=== PATIENT | male | born 1935 | race African-American/Black ===

== ENCOUNTER 2018-08-08 12:50 | Inpatient (IN) ==
[2018-08-08] MEDS ORDERED: LASIX IVP ONE ×2 (13:05→13:07)
[2018-08-08 13:20] LABS: BASOPHILS % (AUTO) 0.4 % (0.2-1.0); EOSINOPHILS # (AUTO) 0.1 x10^3/uL (0.0-0.2); HEMATOCRIT 32.9 % (42.0-54.0); HEMOGLOBIN 10.4 g/dL (13.5-18.0); LYMPHOCYTES # (AUTO) 0.4 X10^3/uL (1.3-2.9); LYMPHOCYTES % (AUTO) 4.8 % (21.0-51.0); MEAN CORPUSCULAR HEMOGLOBIN 28.3 pg (27.0-34.0); MEAN CORPUSCULAR HGB CONC 31.7 g/dL (33.0-35.0); MEAN CORPUSCULAR VOLUME 89.5 fL (80.0-100.0); MEAN PLATELET VOLUME 7.1 fL (7.4-11.0); MONOCYTES # (AUTO) 0.3 x10^3/uL (0.3-0.8); MONOCYTES % (AUTO) 3.3 % (0.0-13.0); NEUTROPHILS # (AUTO) 8.5 x10^3/uL (2.2-4.8); NEUTROPHILS % (AUTO) 90.5 % (42.0-75.0); PLATELET COUNT 369 X10^3/uL (150.0-450.0); RED BLOOD COUNT 3.67 X10^6/uL (4.7-6.0); RED CELL DISTRIBUTION WIDTH 14.5 % (11.6-16.5); WHITE BLOOD COUNT 9.4 X10^3/uL (3.6-10.0)
[2018-08-08] MEDS ORDERED: MORPHINE SULFATE INJ 4 MG IVP ONE (13:24)
[2018-08-08] MEDS ORDERED: MORPHINE SULFATE INJ 4 MG ONE (13:26)
[2018-08-08 13:29] LABS: LACTIC ACID 0.7 mmol/L (0.4-2.0)
[2018-08-08 13:30] LABS: BILIRUBIN,URINE NEGATIVE (NEGATIVE); BLOOD/HEMOGLOBIN,URINE 1+ (NEGATIVE); GLUCOSE, URINE NEGATIVE (NEGATIVE); KETONES,URINE 1+ (NEGATIVE); LEUKOCYTE ESTERASE ,URINE NEGATIVE (NEGATIVE); NITRITES,URINE NEGATIVE (NEGATIVE); PROTEIN,URINE 3+ (NEGATIVE); UROBILINOGEN,URINE 1+ (NORMAL)
[2018-08-08 13:34] LABS: BAND NEUTROPHILS % 2 % (0-10); PLATELET MORPHOLOGY COMMENT NORMAL (NORMAL)
[2018-08-08 13:35] LABS: ALBUMIN 2.8 g/dL (3.4-5.0); CALCIUM 8.6 mg/dL (8.5-10.1); CARBON DIOXIDE 38.6 mmol/L (21-32); CKMB % 1.5 % (<4); COR CA(FOR HYPOALB) 9.6 mg/dL (8.5-10.1); CREATINE KINASE MB 2.5 ng/mL (0-4.0); CREATININE 1.6 mg/dL (0.70-1.30); TOTAL PROTEIN 7.4 g/dL (6.4-8.2); TROPONIN I 1.46 ng/mL (0-1.5)
[2018-08-08 13:41] LABS: APPEARANCE,URINE CLEAR (CLEAR); COLOR,URINE YELLOW (YELLOW)
[2018-08-08 13:42] LABS: RBC,URINE 0-2 /HPF (NONE SEEN)
[2018-08-08 13:43] LABS: BACTERIA,URINE TRACE /HPF (NEGATIVE); SQUAMOUS EPITHELIAL CELL,UR MODERATE /HPF (NEGATIVE)
[2018-08-08 13:55] LABS: ABG BASE EXCESS 10.2 mmol/L (-2.0-2.0)
[2018-08-08 13:56] LABS: ABG HCO3 40.4 mmol/L (22-26)
[2018-08-08 13:57] LABS: ABG ALLEN TEST POS; FRACTIONATED INSPIRED OXYGEN 32
--- NOTE | 2018-08-08 14:02 | RAD ---
HISTORY: Shortness of breath. Study: AP portable chest Comparison: 07/21/2018 Findings: Low volume inspiration noted. Minimal pulmonary vascular congestion and bibasilar atelectatic change /infiltrate is noted, possibly due to low volume inspiration. Obscuration of the left hemidiaphragm is noted suggestive of atelectatic change/infiltrate. Moderate cardiomegaly is noted. No acute bony abnormalities are identified. IMPRESSION: 1. Moderate cardiomegaly. 2. There are findings suggesting of minimal pulmonary vascular congestion versus accentuation of ves sels due to low volume inspiration. 2. Minimal to mild left lower lobe atelectatic change/infiltrate and very minimal on the right. Reported By:
[2018-08-08] MEDS ORDERED: APRESOLINE INJ 20 MG VIAL IVP ONE (15:36)
[2018-08-08] MEDS ORDERED: APRESOLINE INJ 20 MG VIAL ONE (15:42)
--- NOTE | 2018-08-08 16:26 | DR.SOBA ---
HPI Time Seen Time Seen by Provider: 08/08/18 14:12 Primary Care Physician Primary Care Physician: HARVEY Complaints Chief Complaint Doctors Comments: Patient was recently treated for pneumonia in [facility]. He was also diagnosed with a non stemi AR. being medically managed. He presented with complaint of shortness of breath of acute onset according to spouse. She denies patient having vomiting, diarrhea or fever. He can not breath according to spouse. Chief Complaint:: PATIENT STATED THAT HE HAS BEEN SHORT OF BREATH. HE CAN HARDLY ANSWER QUESTIONS DUE TO THE SHORTNESS OF BREATH. PATIENT WAS 71% ON 2L AT HOME WHEN EMS GOT ON SCENE. HE CAME UP TO 82 % WHEN THE O2 WAS BUMPED UP. EYE LIDS AND FACE SWOLLEN. Source History Provided: EMS Mode of Arrival Mode of Arrival: EMS Timing Onset of Chief Complaint: 08/08/18 PMH PMH Past Medical History: Yes Past Medical History: Arthritis, Diabetes, GERD and Hypertension Past Surgical History: Yes Surgical History: Cholecystectomy, Joint Replacement and Ortho Surgery Family History History of Family Medical Conditions: Yes Family Medical History: Diabetes Mellitus, AR and Hypertension Social History Does patient currently use any type of tobacco product: No Have you used tobacco products in the last 12 months: No Type of Tobacco Use: None Does any household member use tobacco: No Alcohol Use: None Do you use any recreational Drugs:: No Lives With: Family Lives Where: Home infectious screening In the last 2 months have you had wt loss of >10#?: NO Have you had fever, night sweats or hemotysis?: No Have you traveled outside the country in the last 6 months?: No Isolation: Standard PE Vital Signs Vitals: Temperature 97.8 F Pulse Rate 72 Respiratory Rate 16 Blood Pressure [Left Arm] 182/129 Blood Pressure [Right Arm] 206/91 Blood Pressure 142/67 O2 Sat by Pulse Oximetry 99 General Limitations: No Limitations and Language Barrier General Appearance: Alert, Anxious, Obtunded and In Distress Head Head Exam: Normal Inspection and Atraumatic Eyes Eye exam: Normal Appearance, PERRL and EOMI ENT ENT Exam: Normal Exam, Normal Oropharynx, Mucous Membranes Moist and TM's Normal Bilaterally Neck Neck Exam: Normal Inspection and Full ROM Chest Chest Inspection: Normal Inspection and Symmetric Chest Wall Rise Respiratory Respiratory Exam: Normal Lung Sounds Bilat Respiratory Exam: Bilateral: Wheezing and Bilateral: Decreased Breath Sounds Cardiovascular Cardiovascular Exam: Normal Rhythm and Normal Heart Sounds Abdominal Exam Abdominal Exam: Normal Inspection and Normal Bowel Sounds Abdominal Tenderness: RUQ Extremities Extremities Exam: Normal Inspection Back Back Exam: Normal Inspection Neurologic Neurological Exam: Alert and Oriented X3 Psychiatric Psychiatric Exam: Normal Affect Skin Skin Exam: Warm and Dry COURSE Treatment Treatment: Bipap Reevaluation 1st: Improved Consultation Called: 13:00 Consultation Comments: Dr Mohan agreed to admit for further evaluation and treatment ROR Labs Reviewed Result Diagrams: 08/08/18 13:00 08/08/18 13:00 Laboratory: WBC 9.4 X10^3/uL (3.6-10.0) 08/08/18 13:00 RBC 3.67 X10^6/uL (4.7-6.0) L 08/08/18 13:00 Hgb 10.4 g/dL (13.5-18.0) L 08/08/18 13:00 Hct 32.9 % (42.0-54.0) L 08/08/18 13:00 MCV 89.5 fL (80.0-100.0) 08/08/18 13:00 MCH 28.3 pg (27.0-34.0) 08/08/18 13:00 MCHC 31.7 g/dL (33.0-35.0) L 08/08/18 13:00 RDW 14.5 % (11.6-16.5) 08/08/18 13:00 Plt Count 369 X10^3/uL (150.0-450.0) 08/08/18 13:00 Plt Count Comment Adequate (ADEQUATE) 08/08/18 13:00 MPV 7.1 fL (7.4-11.0) L 08/08/18 13:00 Neut % (Auto) 90.5 % (42.0-75.0) H 08/08/18 13:00 Lymph % (Auto) 4.8 % (21.0-51.0) L 08/08/18 13:00 [place] % (Auto) 3.3 % (0.0-13.0) 08/08/18 13:00 Eos % (Auto) 1.0 % (0.9-2.9) 08/08/18 13:00 Baso % (Auto) 0.4 % (0.2-1.0) 08/08/18 13:00 Neut # (Auto) 8.5 x10^3/uL (2.2-4.8) H 08/08/18 13:00 Lymph # (Auto) 0.4 X10^3/uL (1.3-2.9) L 08/08/18 13:00 [place] # (Auto) 0.3 x10^3/uL (0.3-0.8) 08/08/18 13:00 Eos # (Auto) 0.1 x10^3/uL (0.0-0.2) 08/08/18 13:00 Baso # (Auto) 0.0 X10^3/uL (0.0-0.1) 08/08/18 13:00 Absolute Nucleated RBC 0.2 /100WBC 08/08/18 13:00 Total Counted 100 08/08/18 13:00 Neutrophils % (Manual) 88 % (39-76) H 08/08/18 13:00 Band Neutrophils % 2 % (0-10) 08/08/18 13:00 Lymphocytes % (Manual) 7 % (13-43) L 08/08/18 13:00 Monocytes % (Manual) 3 % (4-9) L 08/08/18 13:00 Plt Morphology Comment Normal (NORMAL) 08/08/18 13:00 RBC Morphology Normal (NORMAL) 08/08/18 13:00 INR Target Range - 08/08/18 13:00 INR 1.16 (0.8-1.3) 08/08/18 13:00 APTT 28.6 SECONDS (22.9-36.5) 08/08/18 13:00 PTT Comment - 08/08/18 13:00 Sample Site Rr 08/08/18 12:55 ABG pH 7.270 (7.35-7.45) L 08/08/18 12:55 ABG pCO2 88.0 mmHg (35.0-45.0) H* 08/08/18 12:55 ABG pO2 44.0 mmHg (80.0-100.0) L* 08/08/18 12:55 ABG HCO3 40.4 mmol/L (22-26) H* 08/08/18 12:55 ABG O2 Saturation 73.0 % (90-100) L* 08/08/18 12:55 ABG Base Excess 10.2 mmol/L (-2.0-2.0) H 08/08/18 12:55 Sam Test Pos 08/08/18 12:55 A-a Gradient 74.0 mmHg 08/08/18 12:55 FiO2 32 08/08/18 12:55 Blood Gas Comments Ramin well gmb 08/08/18 12:55 Sodium 143 mmol/L (136-145) 08/08/18 13:00 Corrected Sodium 143 mmol/L (136-145) 08/08/18 13:00 Potassium 4.0 mmol/L (3.5-5.1) 08/08/18 13:00 Chloride 103 mmol/L (98-107) 08/08/18 13:00 Carbon Dioxide 38.6 mmol/L (21-32) H 08/08/18 13:00 BUN 26 mg/dL (7-18) H 08/08/18 13:00 Creatinine 1.60 mg/dL (0.70-1.30) H 08/08/18 13:00 Est GFR (MDRD) Af Amer 54 (>60) L 08/08/18 13:00 Est GFR (MDRD) Non-Af 44 (>60) L 08/08/18 13:00 Glucose 118 mg/dL (65-99) H 08/08/18 13:00 POC Glucose (mg/dL) 116 mg/dL (65-99) H 08/08/18 20:34 Lactic Acid 0.7 mmol/L (0.4-2.0) 08/08/18 13:00 Calcium 8.6 mg/dL (8.5-10.1) 08/08/18 13:00 Corrected Calcium 9.6 mg/dL (8.5-10.1) 08/08/18 13:00 Total Bilirubin 0.50 mg/dL (0.2-1.0) 08/08/18 13:00 AST 60 Units/L (15-37) H 08/08/18 13:00 ALT 88 Units/L (12-78) H 08/08/18 13:00 Alkaline Phosphatase 97 Units/L (46-116) 08/08/18 13:00 Creatine Kinase 163 Units/L (39-308) 08/08/18 13:00 CK-MB (CK-2) 2.5 ng/mL (0-4.0) 08/08/18 13:00 CK/CKMB % Calc 1.5 % (<4) 08/08/18 13:00 Troponin I 1.46 ng/mL (0-1.5) 08/08/18 13:00 B-Natriuretic Peptide 426 pg/mL (0-79) H 08/08/18 13:00 Total Protein 7.4 g/dL (6.4-8.2) 08/08/18 13:00 Albumin 2.8 g/dL (3.4-5.0) L 08/08/18 13:00 Globulin 4.6 g/dL (2.5-4.5) H 08/08/18 13:00 Albumin/Globulin Ratio 0.6 Ratio (1.1-2.1) L 08/08/18 13:00 Specimen Type Catherized urine 08/08/18 13:16 Urine Color Yellow (YELLOW) 08/08/18 13:16 Urine Appearance Clear (CLEAR) 08/08/18 13:16 Urine pH 5.0 (5.0 - 8.0) 08/08/18 13:16 Ur Specific [place] 1.025 (1.000-1.030) 08/08/18 13:16 Urine Protein 3+ (NEGATIVE) 08/08/18 13:16 Urine Glucose (UA) Negative (NEGATIVE) 08/08/18 13:16 Urine Ketones 1+ (NEGATIVE) 08/08/18 13:16 Urine Occult Blood 1+ (NEGATIVE) 08/08/18 13:16 Urine Nitrite Negative (NEGATIVE) 08/08/18 13:16 Urine Bilirubin Negative (NEGATIVE) 08/08/18 13:16 Urine Urobilinogen 1+ (NORMAL) 08/08/18 13:16 Ur Leukocyte Esterase Negative (NEGATIVE) 08/08/18 13:16 Urine RBC 0-2 /HPF (NONE SEEN) 08/08/18 13:16 Urine WBC 0-2 /HPF (NONE SEEN) 08/08/18 13:16 Ur Squamous Epith Cells Moderate /HPF (NEGATIVE) 08/08/18 13:16 Urine Bacteria Trace /HPF (NEGATIVE) 08/08/18 13:16 Ur Culture Indicated? No/not indicated 08/08/18 13:16 Other Results Comments: CxR: Moderate cardiomegaly. There are findings suggesting of minimal pulmonary vascular congestion versus accentuation of vessels due to low volume inspiration. Minimal to mild left lower lobe atelectatic change/ infiltrate and very minimal on the right. Diagnosis Discharge Problem: Pneumonia, Hypoxia, Acute respiratory distress
[2018-08-08] MEDS ORDERED: PROVENTIL NEB TX 0.083% 2.5MG/ 3ML IN PRN (16:36)
[2018-08-08] MEDS ORDERED: D5 NS 1000 ML 1,000 ML IV SCH (17:00)
[2018-08-08] MEDS ORDERED: LEVAQUIN PREMIX IV 750 MG 750 MG/150 ML BAG IV ONE (17:05)
[2018-08-08] MEDS: LEVAQUIN PREMIX IV 750 MG 750 MG/150 ML BAG IV SCH (17:09)
[2018-08-08 17:44] VITALS: BMI 33.0
[2018-08-08] MEDS: GLUCOPHAGE PO SCH (20:38)
[2018-08-08] MEDS ORDERED: VIBRAMYCIN PO SCH (21:00)
[2018-08-08] MEDS ORDERED: DOXYCYCLINE HYCLATE PO SCH (21:00)
[2018-08-08] MEDS: APRESOLINE TAB 25 MG PO SCH (21:29)
[2018-08-08] MEDS: LIPITOR TAB 40 MG PO SCH (21:29)
[2018-08-08] MEDS: FLOMAX PO SCH (21:29)
[2018-08-08] MEDS: COREG TAB 3.125 MG PO SCH (21:29)
[2018-08-08] MEDS: DUONEB 0.5 MG/3 MG NEB SCH (21:37)
[2018-08-08] MEDS: NICARDIPINE PO SCH (21:47)
[2018-08-08] MEDS: GENTAMICIN INJ 80 MG in NS 100 ML IV 100 ML IV SCH (22:05)
[2018-08-08] MEDS: MORPHINE SULFATE INJ 2 MG INJ IVP PRN (23:29)
[2018-08-09] MEDS: DUONEB 0.5 MG/3 MG NEB SCH ×6 (01:09→20:35)
[2018-08-09] MEDS: GENTAMICIN INJ 80 MG in NS 100 ML IV 100 ML IV SCH (05:28)
[2018-08-09] MEDS: APRESOLINE TAB 25 MG PO SCH ×3 (05:28→23:00)
[2018-08-09 05:50] LABS: BASOPHILS % (AUTO) 0.6 % (0.2-1.0); EOSINOPHILS # (AUTO) 0.1 x10^3/uL (0.0-0.2); HEMATOCRIT 33.4 % (42.0-54.0); HEMOGLOBIN 10.6 g/dL (13.5-18.0); LYMPHOCYTES # (AUTO) 0.8 X10^3/uL (1.3-2.9); LYMPHOCYTES % (AUTO) 11.1 % (21.0-51.0); MEAN CORPUSCULAR HEMOGLOBIN 28.4 pg (27.0-34.0); MEAN CORPUSCULAR HGB CONC 31.9 g/dL (33.0-35.0); MEAN CORPUSCULAR VOLUME 89.1 fL (80.0-100.0); MEAN PLATELET VOLUME 7.3 fL (7.4-11.0); MONOCYTES # (AUTO) 0.7 x10^3/uL (0.3-0.8); MONOCYTES % (AUTO) 9.3 % (0.0-13.0); NEUTROPHILS # (AUTO) 5.5 x10^3/uL (2.2-4.8); PLATELET COUNT 362 X10^3/uL (150.0-450.0); RED BLOOD COUNT 3.75 X10^6/uL (4.7-6.0); WHITE BLOOD COUNT 7.1 X10^3/uL (3.6-10.0)
[2018-08-09 06:09] LABS: ALANINE AMINOTRANSFERASE 71 Units/L (12-78); ALBUMIN 2.6 g/dL (3.4-5.0); ALKALINE PHOSPHATASE 91 Units/L (46-116); ASPARTATE AMINO TRANSFERASE 26 Units/L (15-37); BLOOD UREA NITROGEN 27 mg/dL (7-18); CALCIUM 8.3 mg/dL (8.5-10.1); CARBON DIOXIDE 39.4 mmol/L (21-32); CHLORIDE 101 mmol/L (98-107); COR CA(FOR HYPOALB) 9.4 mg/dL (8.5-10.1); CREATININE 1.46 mg/dL (0.70-1.30); SODIUM 144 mmol/L (136-145); TOTAL PROTEIN 7.2 g/dL (6.4-8.2); eGFR NON BLACK RACES 49 (>60)
--- NOTE | 2018-08-09 07:41 | RAD ---
HISTORY: Shortness of breath. Prior history of diabetes and hypertension. Study: Single-view chest Comparison: 08/08/2018. Findings: Trachea is midline. Examination is expiratory with accentuation of the transverse cardiac diameter an d bronchovascular markings. There is still evidence of cardiomegaly. Linear foci of atelectasis are p resent in the lung bases. No dense consolidation, pleural fluid or pneumothorax is seen. There is no evidence of CHF. Osseous structures are intact. IMPRESSION: Expiratory chest with cardiomegaly and linear foci of atelectasis in the lung bases. Reported By:
[2018-08-09] MEDS ORDERED: GLUCOPHAGE ONE ×2 (08:38→21:09)
[2018-08-09] MEDS: LEVAQUIN PREMIX IV 750 MG 750 MG/150 ML BAG IV SCH (09:02)
[2018-08-09] MEDS: JANUVIA PO SCH (09:02)
[2018-08-09] MEDS: PLAVIX PO SCH (09:02)
[2018-08-09] MEDS: GLUCOPHAGE PO SCH ×2 (09:03→21:20)
[2018-08-09] MEDS: SYNTHROID 50 mcg TAB PO SCH (09:03)
[2018-08-09] MEDS: ARICEPT TAB 5 MG PO SCH (09:03)
[2018-08-09] MEDS: COREG TAB 3.125 MG PO SCH ×2 (09:03→21:20)
[2018-08-09 09:38] LABS: ABG BASE EXCESS 14.5 mmol/L (-2.0-2.0)
[2018-08-09 09:39] LABS: ABG ALLEN TEST POS; ABG HCO3 43.6 mmol/L (22-26); FRACTIONATED INSPIRED OXYGEN 32
--- NOTE | 2018-08-09 09:59 | DR.H&P ---
H&P - History & Physical for Day of: H&P Date: 08/08/18 - Chief Complaint Chief Complaint: SHORT OF BREATH - History of Present Illness History of Present Illness: IS A 83 YEAR OLD PATIENT OF OURS WHO PRESENTED TO THE EMERGENCY ROOM VIA EMS WITH COMPLAINTS OF SHORTNESS OF BREATH. EMS REPORTED THAT PATIENTS OXYGEN SATURATIONS WERE 71%ON 2L NC AT HOME. HE IS NOTED WITH FACIAL EDEMA ON ARRIVAL. SPOUSE REPORTS THAT HE WAS RECENTLY DISCHARGED FROM [facility] IN [place] FOR TREATMENT OF A NON STEMI DC. NO STENTS WERE PLACED. SHE DENIES PATIENT HAVING VOMITING, DIARRHEA, OR FEVER. ON ARRIVAL, VITALS WERE 98.2-82-26-85%NC-135/69. LABS WERE OBTAINED. ABNORMAL LAB VALUES INCLUDE THE FOLLOWING: RBC 3.67, HGB 10.4, HCT 32.9, CARBON DIOXIDE 39.4, BUN 27, CREATININE 1.46, GLUCOSE 102, CALCIUM 8.3, ALBUMIN 2.6. CARDIAC ENZYMES WITHIN NORMAL LIMITS. CHEST XRAY REVEALED: Moderate cardiomegaly. There are findings suggesting of minimal pulmonary vascular congestion versus accentuation of vessels due to low volume inspiration. Minimal to mild left lower lobe atelectatic change/infiltrate and very minimal on the right. EKG REVEALED NORMAL SINUS RHYTHM WITH HR 84. ABG OBTAINED AND REVEALED PH 7.270, PC02 88.0, P02 44.0, HC03 40.4, 02 SATURATION 73.0. HE WAS PLACED ON THE BIPAPWITH SETTINGS OF: 18/8, RR: 16, O2: 35%. O2 SAT 86%, RESPIRATORY RATE OF 30 BPM. SETTINGS WERE INCREASED TO: O2 INCREASED TO 60%. O2 SAT 90%. RESPIRATORY RATE OF 29 BREATHS PER MINUTE DUE TO DECREASED OXYGEN SATURATIONS. HE WAS GIVEN LASIX 40MG IV X 1 AND MORPHINE 4MG IV X 1 IN THE ER. PATIENT WAS ADMITTED TO THE INTENSIVE CARE UNIT FOR FURTHER EVALUATION AND TREATMENT OF LOWER LOBE PNEUMONIA. HE WAS STARTED ON THE PNEUMONIA PROTOCOL WITH LEVAQUIN AND GENTAMICIN WELL RESPIRATORY TREATMENTS. HOME MEDICATIONS WERE RESUMED. WE PLAN TO FOLLOW UP WITH AM LABS AND CONTINUE TO MONITOR PATIENT. 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 - Family History Family Medical History: Diabetes Mellitus, DC, Hypertension - Social History Does patient currently use any type of tobacco product: No Have you used tobacco products in the last 12 months: No Type of Tobacco Use: None Does any household member use tobacco: No Alcohol Use: None Drug Use: None - Medications Home Medications: No Known Drug Allergies Allergy (Verified 07/19/18 11:22) CONTINUE taking the following medications albuterol sulfate 1 inh INHALATION PRN PRN 08/08/18 [History] atorvastatin 1 tab PO HS 08/08/18 [History] carvedilol 1 tab PO BID 08/08/18 [History] clopidogrel 1 tab PO DAILY 08/08/18 [History] doxycycline hyclate 1 tab PO BID 08/08/18 [History] hydralazine 1 tab PO TID 08/08/18 [History] levothyroxine 1 tab PO DAILY 08/08/18 [History] metformin 1 tab PO BID 08/08/18 [History] nicardipine 1 tab PO TID 08/08/18 [History] sitagliptin [Januvia] 1 tab PO DAILY 08/08/18 [History] - Review of Systems Constitutional: Weakness Eyes: No Symptoms Reported ENT: No Symptoms Reported Respiratory: Shortness of Breath, SOB with Excertion, Wheezing Cardiovascular: Edema (FACIAL EDEMA ) Gastrointestinal: No Symptoms Reported Genitourinary: No Symptoms Reported Musculoskeletal: No Symptoms Reported Skin: No Symptoms Reported Neurological: Weakness - Physical Exam Vital Signs: Temperature 97.3 F Pulse Rate 81 Respiratory Rate 17 Blood Pressure [Left Arm] 182/129 Blood Pressure [Right Arm] 206/91 Blood Pressure 146/69 O2 Sat by Pulse Oximetry 95 Oriented: Normal Eyes: Normal Ear: Normal Nose: Normal Throat: Normal Respiratory: Diminished Throughout, Rhonchi Throughout, Wheezes Throughout Cardiovascular: Edema (FACIAL EDEMA ). negative: S3, S4, Murmur : Normal Auscultation: Bowel Sounds: Normal Palpation: Normal Tenderness: Normal Skin: Normal Musculoskeletal: Normal Psychiatric: Normal Mood Description: Calm Affect: Normal Speech Pattern: Clear - Assessment/Plan (1) Pneumonia Qualifiers: Pneumonia type: due to unspecified organism Laterality: left Lung location: unspecified part of lung Qualified Code(s): J18.9 - Pneumonia, unspecified organism Status: Acute Plan: PNEUMONIA PROTOCOL WITH LEVAQUIN AND GENTAMICIN, RESPIRATORY TREATMENTS, BIPAP, CONTINUE TO MONITOR (2) Acute respiratory distress Status: Acute Plan: BIPAP, RESPIRATORY TREATMENTS, SUPPLEMENTAL OXYGEN, CONTINUE TO MONITOR (3) Hypoxia Status: Acute Plan: BIPAP, RESPIRATORY TREATMENTS, SUPPLEMENTAL OXYGEN, CONTINUE TO MONITOR - Allergies Allergies/Adverse Reactions: Allergies Allergy/AdvReac Type Severity Reaction Status Date / Time No Known Drug Allergies Allergy Verified 07/19/18 11:22
--- NOTE | 2018-08-09 10:53 | PCM.PROG ---
Progress Note - Progress Note for Day of Date of Exam: 08/09/18 - Subjective Subjective: WAS ADMITTED FOR PNEUMONIA, HYPOXIA, AND RESPIRATORY DISTRESS. HE REMAINS IN THE INTENSIVE CARE UNIT TODAY. HE IS CURRENTLY ON NASAL CANNULA. HE HAS BEEN ON BIPAP THROUGHOUT THE NIGHT. HE CONTINUES WITH COMPLAINTS OF SHORTNESS OF BREATH AND GENERALIZED WEAKNESS. ON EXAMINATION, HEART IS REGULAR IN RATE AND RHYTHM. BILATERAL LUNGS ARE NOTED WITH SCATTERED WHEEZING AND RHONCHI THROUGHOUT. HE IS CURRENTLY UTLIZING OXYGEN VIA NASAL CANNULA AT 3L/MIN. ABDOMEN IS ROUND, SOFT, AND NON-TENDER WITH NORMAL BOWEL SOUNDS NOTED IN ALL QUADRANTS. HIS VITALS THIS MORNING ARE 97.3-81-23-95%-156/77. LABS WERE OBTAINED. ABNORMAL LAB VALUES INCLUDE THE FOLLOWING: RBC 3.75, HGB 10.6, HCT 33.4, CARBON DIOXIDE 39.4, BUN 27, CREATININE 1.46, GLUCOSE 102, CALCIUM 8.3, ALBUMIN 2.6. ABG REVEALED: PH 7.350, PC02 79.0, P02 68.0, HC03 43.6, 02 SATURATION 92.0, BASE EXCESS 14.5. SPUTUM AND BLOOD CULTURES ARE PENDING. CHEST XRAY OBTAINED AND REVEALED: Expiratory chest with cardiomegaly and linear foci of atelectasis in the lung bases. TODAY, WE WILL DISCONTINUE THE GENTAMICIN THAT HE IS CURRENTLY ON AND START FORTAZ 1MG IV Q8H. OTHERWISE, WE WILL CONTINUE WITH BIPAP, SUPPLEMENTAL OXYGEN, RESPIRATORY TREATMENTS, AND IV ANTIBIOTICS. WE PLAN TO FOLLOW UP WITH AM LABS AND CONTINUE TO MONITOR PATIENT. - Past Medical Family Social History Past Med/Fam/Surg Hx: No changes since H&P Allergies: Allergies No Known Drug Allergies Allergy (Verified 07/19/18 11:22) - Review of Systems ROS: No change since H&P - Vital Signs and I&O's Vital Signs: Temperature 97.3 F Pulse Rate 87 Respiratory Rate 15 Blood Pressure [Left Arm] 182/129 Blood Pressure [Right Arm] 206/91 Blood Pressure 171/80 O2 Sat by Pulse Oximetry 92 Intake and Output: Intake & Output 08/06/18 08/07/18 08/08/18 08/09/18 11:59 11:59 11:59 11:59 Intake Total 1080 / 1080 Output Total 2225 / 2225 Balance -1145 / -1145 - Physical Exam Oriented: Normal Eyes: Normal Ear: Normal Nose: Normal Throat: Normal Respiratory: Generalized, Diminished, Wheezes, Rhonchi Cardiovascular: Edema (FACIAL EDEMA ). negative: S3, S4, Murmur : Normal Auscultation: Bowel Sounds: Normal Palpation: Normal Tenderness: Normal Skin: Normal Musculoskeletal: Normal Psychiatric: Normal Mood Description: Calm Affect: Normal Speech Pattern: Clear - Laboratory and Diagnostics Result Diagrams: 08/09/18 05:20 08/09/18 05:20 Labs: 08/09/18 06:27 Sputum - Expectorated Sputum - Final Laboratory WBC 7.1 X10^3/uL (3.6-10.0) 08/09/18 05:20 RBC 3.75 X10^6/uL (4.7-6.0) L 08/09/18 05:20 Hgb 10.6 g/dL (13.5-18.0) L 08/09/18 05:20 Hct 33.4 % (42.0-54.0) L 08/09/18 05:20 MCV 89.1 fL (80.0-100.0) 08/09/18 05:20 MCH 28.4 pg (27.0-34.0) 08/09/18 05:20 MCHC 31.9 g/dL (33.0-35.0) L 08/09/18 05:20 RDW 15.0 % (11.6-16.5) 08/09/18 05:20 Plt Count 362 X10^3/uL (150.0-450.0) 08/09/18 05:20 Plt Count Comment Adequate (ADEQUATE) 08/08/18 13:00 MPV 7.3 fL (7.4-11.0) L 08/09/18 05:20 Neut % (Auto) 78.0 % (42.0-75.0) H 08/09/18 05:20 Lymph % (Auto) 11.1 % (21.0-51.0) L 08/09/18 05:20 [place] % (Auto) 9.3 % (0.0-13.0) 08/09/18 05:20 Eos % (Auto) 1.0 % (0.9-2.9) 08/09/18 05:20 Baso % (Auto) 0.6 % (0.2-1.0) 08/09/18 05:20 Neut # (Auto) 5.5 x10^3/uL (2.2-4.8) H 08/09/18 05:20 Lymph # (Auto) 0.8 X10^3/uL (1.3-2.9) L 08/09/18 05:20 [place] # (Auto) 0.7 x10^3/uL (0.3-0.8) 08/09/18 05:20 Eos # (Auto) 0.1 x10^3/uL (0.0-0.2) 08/09/18 05:20 Baso # (Auto) 0.0 X10^3/uL (0.0-0.1) 08/09/18 05:20 Absolute Nucleated RBC 0.4 /100WBC 08/09/18 05:20 Total Counted 100 08/08/18 13:00 Neutrophils % (Manual) 88 % (39-76) H 08/08/18 13:00 Band Neutrophils % 2 % (0-10) 08/08/18 13:00 Lymphocytes % (Manual) 7 % (13-43) L 08/08/18 13:00 Monocytes % (Manual) 3 % (4-9) L 08/08/18 13:00 Plt Morphology Comment Normal (NORMAL) 08/08/18 13:00 RBC Morphology Normal (NORMAL) 08/08/18 13:00 INR Target Range - 08/09/18 05:20 INR 1.15 (0.8-1.3) 08/09/18 05:20 APTT 28.6 SECONDS (22.9-36.5) 08/08/18 13:00 PTT Comment - 08/08/18 13:00 Sample Site Lr 08/09/18 09:32 ABG pH 7.350 (7.35-7.45) 08/09/18 09:32 ABG pCO2 79.0 mmHg (35.0-45.0) H* 08/09/18 09:32 ABG pO2 68.0 mmHg (80.0-100.0) L 08/09/18 09:32 ABG HCO3 43.6 mmol/L (22-26) H* 08/09/18 09:32 ABG O2 Saturation 92.0 % (90-100) 08/09/18 09:32 ABG Base Excess 14.5 mmol/L (-2.0-2.0) H 08/09/18 09:32 Sam Test Pos 08/09/18 09:32 A-a Gradient 61.0 mmHg 08/09/18 09:32 FiO2 32 08/09/18 09:32 Blood Gas Comments Pt maurice well. cdn 08/09/18 09:32 Sodium 144 mmol/L (136-145) 08/09/18 05:20 Corrected Sodium TNP 08/09/18 05:20 Potassium 4.3 mmol/L (3.5-5.1) 08/09/18 05:20 Chloride 101 mmol/L (98-107) 08/09/18 05:20 Carbon Dioxide 39.4 mmol/L (21-32) H 08/09/18 05:20 BUN 27 mg/dL (7-18) H 08/09/18 05:20 Creatinine 1.46 mg/dL (0.70-1.30) H 08/09/18 05:20 Est GFR (MDRD) Af Amer 60 (>60) 08/09/18 05:20 Est GFR (MDRD) Non-Af 49 (>60) L 08/09/18 05:20 Glucose 102 mg/dL (65-99) H 08/09/18 05:20 POC Glucose (mg/dL) 189 mg/dL (65-99) H 08/09/18 10:45 Lactic Acid 0.7 mmol/L (0.4-2.0) 08/08/18 13:00 Calcium 8.3 mg/dL (8.5-10.1) L 08/09/18 05:20 Corrected Calcium 9.4 mg/dL (8.5-10.1) 08/09/18 05:20 Total Bilirubin 0.40 mg/dL (0.2-1.0) 08/09/18 05:20 AST 26 Units/L (15-37) 08/09/18 05:20 ALT 71 Units/L (12-78) 08/09/18 05:20 Alkaline Phosphatase 91 Units/L (46-116) 08/09/18 05:20 Creatine Kinase 163 Units/L (39-308) 08/08/18 13:00 CK-MB (CK-2) 2.5 ng/mL (0-4.0) 08/08/18 13:00 CK/CKMB % Calc 1.5 % (<4) 08/08/18 13:00 Troponin I 1.46 ng/mL (0-1.5) 08/08/18 13:00 B-Natriuretic Peptide 426 pg/mL (0-79) H 08/08/18 13:00 Total Protein 7.2 g/dL (6.4-8.2) 08/09/18 05:20 Albumin 2.6 g/dL (3.4-5.0) L 08/09/18 05:20 Globulin 4.6 g/dL (2.5-4.5) H 08/09/18 05:20 Albumin/Globulin Ratio 0.6 Ratio (1.1-2.1) L 08/09/18 05:20 Specimen Type Catherized urine 08/08/18 13:16 Urine Color Yellow (YELLOW) 08/08/18 13:16 Urine Appearance Clear (CLEAR) 08/08/18 13:16 Urine pH 5.0 (5.0 - 8.0) 08/08/18 13:16 Ur Specific [place] 1.025 (1.000-1.030) 08/08/18 13:16 Urine Protein 3+ (NEGATIVE) 08/08/18 13:16 Urine Glucose (UA) Negative (NEGATIVE) 08/08/18 13:16 Urine Ketones 1+ (NEGATIVE) 08/08/18 13:16 Urine Occult Blood 1+ (NEGATIVE) 08/08/18 13:16 Urine Nitrite Negative (NEGATIVE) 08/08/18 13:16 Urine Bilirubin Negative (NEGATIVE) 08/08/18 13:16 Urine Urobilinogen 1+ (NORMAL) 08/08/18 13:16 Ur Leukocyte Esterase Negative (NEGATIVE) 08/08/18 13:16 Urine RBC 0-2 /HPF (NONE SEEN) 08/08/18 13:16 Urine WBC 0-2 /HPF (NONE SEEN) 08/08/18 13:16 Ur Squamous Epith Cells Moderate /HPF (NEGATIVE) 08/08/18 13:16 Urine Bacteria Trace /HPF (NEGATIVE) 08/08/18 13:16 Ur Culture Indicated? No/not indicated 08/08/18 13:16 - Plan (1) Pneumonia Status: Acute Qualifiers: Pneumonia type: due to unspecified organism Laterality: left Lung location: unspecified part of lung Qualified Code(s): J18.9 - Pneumonia, unspecified organism Plan: PNEUMONIA PROTOCOL WITH LEVAQUIN AND FORTAZ, RESPIRATORY TREATMENTS, BIPAP, CONTINUE TO MONITOR (2) Acute respiratory distress Status: Acute Plan: BIPAP, RESPIRATORY TREATMENTS, SUPPLEMENTAL OXYGEN, CONTINUE TO MONITOR (3) Hypoxia Status: Acute Plan: BIPAP, RESPIRATORY TREATMENTS, SUPPLEMENTAL OXYGEN, CONTINUE TO MONITOR
[2018-08-09] MEDS: FORTAZ or TAZICEF VIAL INJ IVP SCH ×3 (12:10→21:20)
[2018-08-09] MEDS: NICARDIPINE PO SCH ×3 (13:07→23:55)
[2018-08-09] MEDS: LIPITOR TAB 40 MG PO SCH (21:20)
[2018-08-09] MEDS: FLOMAX PO SCH (21:21)
[2018-08-09] MEDS ORDERED: RESTORIL CAP 15 MG PO PRN (21:48)
[2018-08-10] MEDS: DUONEB 0.5 MG/3 MG NEB SCH ×6 (01:16→21:00)
[2018-08-10] MEDS: MORPHINE SULFATE INJ 2 MG INJ IVP PRN (01:31)
[2018-08-10 05:16] LABS: ABG BASE EXCESS 16.3 mmol/L (-2.0-2.0); FRACTIONATED INSPIRED OXYGEN 45
[2018-08-10 05:17] LABS: ABG ALLEN TEST POS
[2018-08-10] MEDS: FORTAZ or TAZICEF VIAL INJ IVP SCH ×3 (05:19→21:57)
[2018-08-10] MEDS: APRESOLINE TAB 25 MG PO SCH ×3 (05:19→21:57)
[2018-08-10] MEDS: NICARDIPINE PO SCH ×3 (05:19→21:57)
[2018-08-10 05:58] LABS: BASOPHILS % (AUTO) 0.6 % (0.2-1.0); EOSINOPHILS # (AUTO) 0.2 x10^3/uL (0.0-0.2); EOSINOPHILS % (AUTO) 2.8 % (0.9-2.9); HEMATOCRIT 31.6 % (42.0-54.0); HEMOGLOBIN 10.3 g/dL (13.5-18.0); LYMPHOCYTES # (AUTO) 0.9 X10^3/uL (1.3-2.9); LYMPHOCYTES % (AUTO) 12.3 % (21.0-51.0); MEAN CORPUSCULAR HEMOGLOBIN 28.2 pg (27.0-34.0); MEAN CORPUSCULAR HGB CONC 32.4 g/dL (33.0-35.0); MEAN PLATELET VOLUME 7.1 fL (7.4-11.0); MONOCYTES # (AUTO) 0.8 x10^3/uL (0.3-0.8); MONOCYTES % (AUTO) 10.6 % (0.0-13.0); NEUTROPHILS # (AUTO) 5.3 x10^3/uL (2.2-4.8); NEUTROPHILS % (AUTO) 73.7 % (42.0-75.0); PLATELET COUNT 313 X10^3/uL (150.0-450.0); RED BLOOD COUNT 3.64 X10^6/uL (4.7-6.0); RED CELL DISTRIBUTION WIDTH 14.9 % (11.6-16.5); WHITE BLOOD COUNT 7.2 X10^3/uL (3.6-10.0)
[2018-08-10 06:14] LABS: ALANINE AMINOTRANSFERASE 51 Units/L (12-78); ALBUMIN 2.4 g/dL (3.4-5.0); ALKALINE PHOSPHATASE 79 Units/L (46-116); ASPARTATE AMINO TRANSFERASE 14 Units/L (15-37); BLOOD UREA NITROGEN 24 mg/dL (7-18); CALCIUM 8.2 mg/dL (8.5-10.1); CARBON DIOXIDE 39.6 mmol/L (21-32); CHLORIDE 99 mmol/L (98-107); COR CA(FOR HYPOALB) 9.5 mg/dL (8.5-10.1); COR NA(FOR HYPERGLY) 142 mmol/L (136-145); CREATININE 1.38 mg/dL (0.70-1.30); SODIUM 140 mmol/L (136-145); TOTAL PROTEIN 6.7 g/dL (6.4-8.2); eGFR NON BLACK RACES 53 (>60)
--- NOTE | 2018-08-10 06:57 | RAD ---
HISTORY: Shortness of breath Study: Chest AP portable Comparison: 08/09/2018 Findings: The heart remains enlarged. No congestive heart failure is noted. The lungs remain hypo inflated. No acute alveolar infiltrates are identified. No pleural effusions are present. There is some subsegment al atelectasis in the right lung base. The bony thorax is unremarkable IMPRESSION: Moderate cardiomegaly without congestive heart failure Lungs hypo inflated but free of acute infiltrates Reported By:
[2018-08-10] MEDS ORDERED: GLUCOPHAGE ONE ×2 (08:43→20:10)
[2018-08-10] MEDS: LEVAQUIN PREMIX IV 750 MG 750 MG/150 ML BAG IV SCH (09:20)
[2018-08-10] MEDS: COREG TAB 3.125 MG PO SCH ×2 (09:20→20:22)
[2018-08-10] MEDS: ARICEPT TAB 5 MG PO SCH (09:21)
[2018-08-10] MEDS: PLAVIX PO SCH (09:21)
[2018-08-10] MEDS: SYNTHROID 50 mcg TAB PO SCH (09:21)
[2018-08-10] MEDS: GLUCOPHAGE PO SCH ×2 (09:21→20:23)
[2018-08-10] MEDS: JANUVIA PO SCH (09:21)
[2018-08-10] MEDS: ZESTRIL TAB 10 MG PO SCH ×2 (10:58→20:23)
--- NOTE | 2018-08-10 19:04 | PCM.PROG ---
Progress Note - Progress Note for Day of Date of Exam: 08/10/18 - Subjective Subjective: WAS ADMITTED FOR PNEUMONIA, HYPOXIA, AND RESPIRATORY DISTRESS. HE REMAINS IN THE INTENSIVE CARE UNIT TODAY. HE IS CURRENTLY ON NASAL CANNULA. HE CONTINUES WITH COMPLAINTS OF SHORTNESS OF BREATH AND GENERALIZED WEAKNESS, BUT REPORTS IMPROVEMENT SINCE YESTERDAY. ON EXAMINATION, HEART IS REGULAR IN RATE AND RHYTHM. BILATERAL LUNGS CONTINUE WITH SCATTERED WHEEZING AND RHONCHI THROUGHOUT. HE IS CURRENTLY UTLIZING OXYGEN VIA NASAL CANNULA AT 3L/ MIN. ABDOMEN IS ROUND, SOFT, AND NON-TENDER WITH NORMAL BOWEL SOUNDS NOTED IN ALL QUADRANTS. HIS VITALS THIS MORNING ARE 97.8-85-19-93%NC-122/57. LABS WERE OBTAINED. ABNORMAL LAB VALUES INCLUDE THE FOLLOWING: RBC 3.64, HGB 10.3, HCT 31.6, CARBON DIOXIDE 39.6, BUN 24, CREATININE 1.38, GLUCOSE 182, CALCIUM 8.2, AST 14, ALBUMIN 2.4. ABG REVEALED: PH 7.380, PC02 76.0, P02 142.0, HC03 45.0, 02 SATURATION 99.0, BASE EXCESS 16.3. SPUTUM AND BLOOD CULTURES ARE PENDING. CHEST XRAY OBTAINED AND REVEALED: Moderate cardiomegaly without congestive heart failure. Lungs hypo inflated but free of acute infiltrates. HE IS CURRENTLY RECEIVING IV ANTIBIOTICS AND RESPIRATORY TREATMENTS. WE WILL CONTINUE WITH CURRENT PLAN OF CARE TODAY. OTHERWISE, WE PLAN TO FOLLOW UP WITH AM LABS AND CONTINUE TO MONITOR PATIENT. - Past Medical Family Social History Past Med/Fam/Surg Hx: No changes since H&P Allergies: Allergies No Known Drug Allergies Allergy (Verified 07/19/18 11:22) - Review of Systems ROS: No change since H&P - Vital Signs and I&O's Vital Signs: Temperature 97.5 F Pulse Rate 80 Respiratory Rate 25 Blood Pressure [Left Arm] 182/129 Blood Pressure [Right Arm] 206/91 Blood Pressure 147/69 O2 Sat by Pulse Oximetry 97 Intake and Output: Intake & Output 08/08/18 08/09/18 08/10/18 08/11/18 11:59 11:59 11:59 11:59 Intake Total 1080 / 1080 1490 / 1490 480 / 480 Output Total 2225 / 2225 950 / 950 350 / 350 Balance -1145 / -1145 540 / 540 130 / 130 - Physical Exam Oriented: Normal Eyes: Normal Ear: Normal Nose: Normal Throat: Normal Respiratory: Generalized, Diminished, Wheezes, Rhonchi Cardiovascular: Edema (FACIAL EDEMA ). negative: S3, S4, Murmur : Normal Auscultation: Bowel Sounds: Normal Palpation: Normal Tenderness: Normal Skin: Normal Musculoskeletal: Normal Psychiatric: Normal Mood Description: Calm Affect: Normal Speech Pattern: Delayed - Laboratory and Diagnostics Result Diagrams: 08/10/18 05:24 08/10/18 05:24 Labs: 08/08/18 13:00 Blood Blood Culture - Preliminary 08/08/18 13:05 Blood Blood Culture - Preliminary 08/09/18 06:27 Sputum - Expectorated Sputum Sputum Culture - Preliminary 08/09/18 06:27 Sputum - Expectorated Sputum - Final Laboratory WBC 7.2 X10^3/uL (3.6-10.0) 08/10/18 05:24 RBC 3.64 X10^6/uL (4.7-6.0) L 08/10/18 05:24 Hgb 10.3 g/dL (13.5-18.0) L 08/10/18 05:24 Hct 31.6 % (42.0-54.0) L 08/10/18 05:24 MCV 87.0 fL (80.0-100.0) 08/10/18 05:24 MCH 28.2 pg (27.0-34.0) 08/10/18 05:24 MCHC 32.4 g/dL (33.0-35.0) L 08/10/18 05:24 RDW 14.9 % (11.6-16.5) 08/10/18 05:24 Plt Count 313 X10^3/uL (150.0-450.0) 08/10/18 05:24 Plt Count Comment Adequate (ADEQUATE) 08/08/18 13:00 MPV 7.1 fL (7.4-11.0) L 08/10/18 05:24 Neut % (Auto) 73.7 % (42.0-75.0) 08/10/18 05:24 Lymph % (Auto) 12.3 % (21.0-51.0) L 08/10/18 05:24 [place] % (Auto) 10.6 % (0.0-13.0) 08/10/18 05:24 Eos % (Auto) 2.8 % (0.9-2.9) 08/10/18 05:24 Baso % (Auto) 0.6 % (0.2-1.0) 08/10/18 05:24 Neut # (Auto) 5.3 x10^3/uL (2.2-4.8) H 08/10/18 05:24 Lymph # (Auto) 0.9 X10^3/uL (1.3-2.9) L 08/10/18 05:24 [place] # (Auto) 0.8 x10^3/uL (0.3-0.8) 08/10/18 05:24 Eos # (Auto) 0.2 x10^3/uL (0.0-0.2) 08/10/18 05:24 Baso # (Auto) 0.0 X10^3/uL (0.0-0.1) 08/10/18 05:24 Absolute Nucleated RBC 0.1 /100WBC 08/10/18 05:24 Total Counted 100 08/08/18 13:00 Neutrophils % (Manual) 88 % (39-76) H 08/08/18 13:00 Band Neutrophils % 2 % (0-10) 08/08/18 13:00 Lymphocytes % (Manual) 7 % (13-43) L 08/08/18 13:00 Monocytes % (Manual) 3 % (4-9) L 08/08/18 13:00 Plt Morphology Comment Normal (NORMAL) 08/08/18 13:00 RBC Morphology Normal (NORMAL) 08/08/18 13:00 INR Target Range - 08/09/18 05:20 INR 1.15 (0.8-1.3) 08/09/18 05:20 APTT 28.6 SECONDS (22.9-36.5) 08/08/18 13:00 PTT Comment - 08/08/18 13:00 Sample Site Rrad 08/10/18 05:00 ABG pH 7.380 (7.35-7.45) 08/10/18 05:00 ABG pCO2 76.0 mmHg (35.0-45.0) H* 08/10/18 05:00 ABG pO2 142.0 mmHg (80.0-100.0) H 08/10/18 05:00 ABG HCO3 45.0 mmol/L (22-26) H* 08/10/18 05:00 ABG O2 Saturation 99.0 % (90-100) 08/10/18 05:00 ABG Base Excess 16.3 mmol/L (-2.0-2.0) H 08/10/18 05:00 Sam Test Pos 08/10/18 05:00 A-a Gradient 84.0 mmHg 08/10/18 05:00 FiO2 45 08/10/18 05:00 Blood Gas Comments Ramin abg well-mtf 08/10/18 05:00 Sodium 140 mmol/L (136-145) 08/10/18 05:24 Corrected Sodium 142 mmol/L (136-145) 08/10/18 05:24 Potassium 3.9 mmol/L (3.5-5.1) 08/10/18 05:24 Chloride 99 mmol/L (98-107) 08/10/18 05:24 Carbon Dioxide 39.6 mmol/L (21-32) H 08/10/18 05:24 BUN 24 mg/dL (7-18) H 08/10/18 05:24 Creatinine 1.38 mg/dL (0.70-1.30) H 08/10/18 05:24 Est GFR (MDRD) Af Amer > 60 (>60) 08/10/18 05:24 Est GFR (MDRD) Non-Af 53 (>60) L 08/10/18 05:24 Glucose 182 mg/dL (65-99) H 08/10/18 05:24 POC Glucose (mg/dL) 144 mg/dL (65-99) H 08/10/18 17:10 Lactic Acid 0.7 mmol/L (0.4-2.0) 08/08/18 13:00 Calcium 8.2 mg/dL (8.5-10.1) L 08/10/18 05:24 Corrected Calcium 9.5 mg/dL (8.5-10.1) 08/10/18 05:24 Total Bilirubin 0.40 mg/dL (0.2-1.0) 08/10/18 05:24 AST 14 Units/L (15-37) L 08/10/18 05:24 ALT 51 Units/L (12-78) 08/10/18 05:24 Alkaline Phosphatase 79 Units/L (46-116) 08/10/18 05:24 Creatine Kinase 163 Units/L (39-308) 08/08/18 13:00 CK-MB (CK-2) 2.5 ng/mL (0-4.0) 08/08/18 13:00 CK/CKMB % Calc 1.5 % (<4) 08/08/18 13:00 Troponin I 1.46 ng/mL (0-1.5) 08/08/18 13:00 B-Natriuretic Peptide 426 pg/mL (0-79) H 08/08/18 13:00 Total Protein 6.7 g/dL (6.4-8.2) 08/10/18 05:24 Albumin 2.4 g/dL (3.4-5.0) L 08/10/18 05:24 Globulin 4.3 g/dL (2.5-4.5) 08/10/18 05:24 Albumin/Globulin Ratio 0.6 Ratio (1.1-2.1) L 08/10/18 05:24 Specimen Type Catherized urine 08/08/18 13:16 Urine Color Yellow (YELLOW) 08/08/18 13:16 Urine Appearance Clear (CLEAR) 08/08/18 13:16 Urine pH 5.0 (5.0 - 8.0) 08/08/18 13:16 Ur Specific [place] 1.025 (1.000-1.030) 08/08/18 13:16 Urine Protein 3+ (NEGATIVE) 08/08/18 13:16 Urine Glucose (UA) Negative (NEGATIVE) 08/08/18 13:16 Urine Ketones 1+ (NEGATIVE) 08/08/18 13:16 Urine Occult Blood 1+ (NEGATIVE) 08/08/18 13:16 Urine Nitrite Negative (NEGATIVE) 08/08/18 13:16 Urine Bilirubin Negative (NEGATIVE) 08/08/18 13:16 Urine Urobilinogen 1+ (NORMAL) 08/08/18 13:16 Ur Leukocyte Esterase Negative (NEGATIVE) 08/08/18 13:16 Urine RBC 0-2 /HPF (NONE SEEN) 08/08/18 13:16 Urine WBC 0-2 /HPF (NONE SEEN) 08/08/18 13:16 Ur Squamous Epith Cells Moderate /HPF (NEGATIVE) 08/08/18 13:16 Urine Bacteria Trace /HPF (NEGATIVE) 08/08/18 13:16 Ur Culture Indicated? No/not indicated 08/08/18 13:16 - Plan (1) Pneumonia Status: Acute Qualifiers: Pneumonia type: due to unspecified organism Laterality: left Lung location: unspecified part of lung Qualified Code(s): J18.9 - Pneumonia, unspecified organism Plan: PNEUMONIA PROTOCOL WITH LEVAQUIN AND FORTAZ, RESPIRATORY TREATMENTS, BIPAP , CONTINUE TO MONITOR (2) Acute respiratory distress Status: Acute Plan: BIPAP, RESPIRATORY TREATMENTS, SUPPLEMENTAL OXYGEN, CONTINUE TO MONITOR (3) Hypoxia Status: Acute Plan: BIPAP, RESPIRATORY TREATMENTS, SUPPLEMENTAL OXYGEN, CONTINUE TO MONITOR
[2018-08-10] MEDS ORDERED: NORVASC TAB 2.5 MG ONE (20:10)
[2018-08-10] MEDS ORDERED: NS 50 ML IV 0 ML IV ONE (20:13)
[2018-08-10] MEDS: FLOMAX PO SCH (20:22)
[2018-08-10] MEDS: LIPITOR TAB 40 MG PO SCH (20:23)
[2018-08-10] MEDS ORDERED: COLACE CAP 100 MG PO SCH (21:00)
[2018-08-10] MEDS ORDERED: MILK OF MAGNESIA PO SCH (21:00)
[2018-08-10] MEDS ORDERED: NORVASC TAB 2.5 MG PO SCH (21:00)
[2018-08-11] MEDS: DUONEB 0.5 MG/3 MG NEB SCH ×4 (00:07→13:23)
[2018-08-11 05:22] LABS: ABG BASE EXCESS 15.5 mmol/L (-2.0-2.0)
[2018-08-11 05:23] LABS: ABG ALLEN TEST POS; FRACTIONATED INSPIRED OXYGEN 35
[2018-08-11] MEDS: NICARDIPINE PO SCH (05:49)
[2018-08-11] MEDS: APRESOLINE TAB 25 MG PO SCH (05:49)
[2018-08-11] MEDS: FORTAZ or TAZICEF VIAL INJ IVP SCH (05:50)
[2018-08-11 06:39] LABS: BASOPHILS % (AUTO) 0.3 % (0.2-1.0); EOSINOPHILS # (AUTO) 0.3 x10^3/uL (0.0-0.2); EOSINOPHILS % (AUTO) 4.6 % (0.9-2.9); HEMATOCRIT 31.2 % (42.0-54.0); LYMPHOCYTES # (AUTO) 0.9 X10^3/uL (1.3-2.9); LYMPHOCYTES % (AUTO) 12.7 % (21.0-51.0); MEAN CORPUSCULAR HEMOGLOBIN 28.3 pg (27.0-34.0); MEAN CORPUSCULAR VOLUME 88.5 fL (80.0-100.0); MEAN PLATELET VOLUME 7.2 fL (7.4-11.0); MONOCYTES # (AUTO) 0.6 x10^3/uL (0.3-0.8); NEUTROPHILS % (AUTO) 73.4 % (42.0-75.0); PLATELET COUNT 297 X10^3/uL (150.0-450.0); RED BLOOD COUNT 3.52 X10^6/uL (4.7-6.0); RED CELL DISTRIBUTION WIDTH 14.3 % (11.6-16.5); WHITE BLOOD COUNT 6.8 X10^3/uL (3.6-10.0)
--- NOTE | 2018-08-11 06:39 | RAD ---
HISTORY: Shortness of breath. Prior history of diabetes and hypertension. Study: Single-view chest Comparison: 08/10/2018. Findings: Trachea is midline. The expiratory technique is seen to accentuate the transverse cardiac diameter an d bronchovascular markings. There is cardiomegaly. Left lung is clear. There is atelectasis or infilt rate present in the right lung base. No pleural fluid or pneumothorax is seen. Osseous structures are intact. IMPRESSION: Cardiomegaly. Atelectasis or infiltrate present in the right lung base. Reported By:
[2018-08-11 06:51] LABS: ALANINE AMINOTRANSFERASE 38 Units/L (12-78); ALBUMIN 2.4 g/dL (3.4-5.0); ALKALINE PHOSPHATASE 75 Units/L (46-116); ASPARTATE AMINO TRANSFERASE 10 Units/L (15-37); BLOOD UREA NITROGEN 21 mg/dL (7-18); CALCIUM 8.4 mg/dL (8.5-10.1); CARBON DIOXIDE 38.7 mmol/L (21-32); CHLORIDE 98 mmol/L (98-107); COR CA(FOR HYPOALB) 9.7 mg/dL (8.5-10.1); COR NA(FOR HYPERGLY) 141 mmol/L (136-145); CREATININE 1.36 mg/dL (0.70-1.30); SODIUM 138 mmol/L (136-145); TOTAL PROTEIN 6.5 g/dL (6.4-8.2); eGFR NON BLACK RACES 53 (>60)
[2018-08-11] MEDS ORDERED: GLUCOPHAGE ONE (09:10)
[2018-08-11] MEDS: LEVAQUIN PREMIX IV 750 MG 750 MG/150 ML BAG IV SCH (09:52)
[2018-08-11] MEDS: SYNTHROID 50 mcg TAB PO SCH (09:52)
[2018-08-11] MEDS: GLUCOPHAGE PO SCH (09:52)
[2018-08-11] MEDS: ARICEPT TAB 5 MG PO SCH (09:53)
[2018-08-11] MEDS: ZESTRIL TAB 10 MG PO SCH (09:53)
[2018-08-11] MEDS: JANUVIA PO SCH (09:53)
[2018-08-11] MEDS: PLAVIX PO SCH (09:53)
[2018-08-11] MEDS: COREG TAB 3.125 MG PO SCH (09:53)
[2018-08-11 14:37] VITALS: BP 149/65
--- NOTE | 2018-09-13 22:22 | DR.CARTERD ---
- Discharge Summary for: Discharge Summary for Date of:: 08/11/18 - Admission Date Date of Admission: 08/08/18 - Admission Diagnoses Admission Diagnosis: (1) Pneumonia (2) Acute respiratory distress (3) Hypoxia - Discharge Date Discharge Date: 08/11/18 - Discharge Diagnoses Discharge Diagnosis: (1) Pneumonia (2) Acute respiratory distress (3) Hypoxia - Hospital Course Hospital Course: DAY ONE, MR. POSEY IS A 83 YEAR OLD PATIENT OF OURS WHO PRESENTED TO THE EMERGENCY ROOM VIA EMS WITH COMPLAINTS OF SHORTNESS OF BREATH. EMS REPORTED THAT PATIENTS OXYGEN SATURATIONS WERE 71% ON 2L NC AT HOME. HE WAS NOTED WITH FACIAL EDEMA ON ARRIVAL. SPOUSE REPORTED THAT HE WAS RECENTLY DISCHARGED FROM [facility] IN [place] FOR TREATMENT OF A NON STEMI MA. NO STENTS WERE PLACED. SHE DENIED PATIENT HAVING VOMITING, DIARRHEA, OR FEVER. ON ARRIVAL, VITALS WERE 98.2-82-26-85%NC-135/69. LABS WERE OBTAINED. ABNORMAL LAB VALUES INCLUDED THE FOLLOWING: RBC 3.67, HGB 10.4, HCT 32.9, CARBON DIOXIDE 39.4, BUN 27, CREATININE 1.46, GLUCOSE 102, CALCIUM 8.3, ALBUMIN 2.6. CARDIAC ENZYMES WITHIN NORMAL LIMITS. CHEST XRAY REVEALED: Moderate cardiomegaly. There are findings suggesting of minimal pulmonary vascular congestion versus accentuation of vessels due to low volume inspiration. Minimal to mild left lower lobe atelectatic change/infiltrate and very minimal on the right. EKG REVEALED NORMAL SINUS RHYTHM WITH HR 84. ABG OBTAINED AND REVEALED PH 7.270, PC02 88.0, P02 44.0, HC03 40.4, 02 SATURATION 73.0. HE WAS PLACED ON THE BIPAP WITH SETTINGS OF: 18/8, RR: 16, O2: 35%. O2 SAT 86%, RESPIRATORY RATE OF 30 BPM. SETTINGS WERE INCREASED TO: O2 INCREASED TO 60%. O2 SAT 90%. RESPIRATORY RATE OF 29 BREATHS PER MINUTE DUE TO DECREASED OXYGEN SATURATIONS. HE WAS GIVEN LASIX 40MG IV X 1 AND MORPHINE 4MG IV X 1 IN THE ER. PATIENT WAS ADMITTED TO THE INTENSIVE CARE UNIT FOR FURTHER EVALUATION AND TREATMENT OF LOWER LOBE PNEUMONIA. HE WAS STARTED ON THE PNEUMONIA PROTOCOL WITH LEVAQUIN AND GENTAMICIN WELL RESPIRATORY TREATMENTS. HOME MEDICATIONS WERE RESUMED. DAY TWO, MR. POSEY WAS ADMITTED FOR PNEUMONIA, HYPOXIA, AND RESPIRATORY DISTRESS. HE REMAINED IN THE INTENSIVE CARE UNIT. HE WAS ON NASAL CANNULA. HE HAD BEEN ON BIPAP THROUGHOUT THE NIGHT. HE CONTINUED WITH COMPLAINTS OF SHORTNESS OF BREATH AND GENERALIZED WEAKNESS. ON EXAMINATION, HEART WAS REGULAR IN RATE AND RHYTHM. BILATERAL LUNGS WERE NOTED WITH SCATTERED WHEEZING AND RHONCHI THROUGHOUT. HE WAS ON OXYGEN VIA NASAL CANNULA AT 3L/MIN. ABDOMEN WAS ROUND, SOFT, AND NON- TENDER WITH NORMAL BOWEL SOUNDS NOTED IN ALL QUADRANTS. HIS VITALS WERE 97.3-81-23-95%-156/77. LABS WERE OBTAINED. ABNORMAL LAB VALUES INCLUDE THE FOLLOWING: RBC 3.75, HGB 10.6, HCT 33.4, CARBON DIOXIDE 39.4, BUN 27, CREATININE 1.46, GLUCOSE 102, CALCIUM 8.3, ALBUMIN 2.6. ABG REVEALED: PH 7.350, PC02 79.0, P02 68.0, HC03 43.6, 02 SATURATION 92.0, BASE EXCESS 14.5. SPUTUM AND BLOOD CULTURES ARE PENDING. CHEST XRAY OBTAINED AND REVEALED: Expiratory chest with cardiomegaly and linear foci of atelectasis in the lung bases. WE DISCONTINUED THE GENTAMICIN AND STARTED FORTAZ 1MG IV Q8H. WE CONTINUED WITH BIPAP, SUPPLEMENTAL OXYGEN, RESPIRATORY TREATMENTS, AND IV ANTIBIOTICS. DAY THREE, HE REMAINED IN THE INTENSIVE CARE UNIT. HE CONTINUED WITH COMPLAINTS OF SHORTNESS OF BREATH AND GENERALIZED WEAKNESS, BUT REPORTED IMPROVEMENT. ON EXAMINATION, HEART WAS REGULAR IN RATE AND RHYTHM. BILATERAL LUNGS CONTINUED WITH SCATTERED WHEEZING AND RHONCHI THROUGHOUT. ABDOMEN WAS ROUND, SOFT, AND NON-TENDER WITH NORMAL BOWEL SOUNDS NOTED IN ALL QUADRANTS. HIS VITALS WERE 97.8-85-19-93%NC-122/57. LABS WERE OBTAINED. ABNORMAL LAB VALUES INCLUDED THE FOLLOWING: RBC 3.64, HGB 10.3, HCT 31.6, CARBON DIOXIDE 39.6, BUN 24, CREATININE 1.38, GLUCOSE 182, CALCIUM 8.2, AST 14, ALBUMIN 2.4. ABG REVEALED: PH 7.380, PC02 76.0, P02 142.0, HC03 45.0, 02 SATURATION 99.0, BASE EXCESS 16.3. CHEST XRAY OBTAINED AND REVEALED: Moderate cardiomegaly without congestive heart failure. Lungs hypo inflated but free of acute infiltrates. WE CONTINUED IV ANTIBIOTICS AND RESPIRATORY TREATMENTS. DAY FOUR, PATIENT REPORTED IMPROVEMENT IN SYMPTOMS. NO DISTRESS WAS NOTED. RESPIRATORY EFFORT WAS EASY. ON AUSCULTATION, LUNGS WERE NOTED WITH SCATTERED RHONCHI TO UPPER LOBES. COUGH WAS MOIST, PRODUCTIVE. VITAL SIGNS STABLE. LABS WNL. WE PLANNED FOR DISCHARGE. INSTRUCTIONS FOR MEDICATIONS AND FOLLOW UP WERE DISCUSSED WITH PATIENT AND FAMILY, BOTH VOICED UNDERSTANDING. PATIENT DISCHARGED HOME IN STABLE CONDITION WITH FAMILY. - Discharge Medications Discharge Medications: Home Medication List albuterol sulfate 1 inh INHALATION PRN PRN 08/08/18 [History] atorvastatin 1 tab PO HS 08/08/18 [History] carvedilol 1 tab PO BID 08/08/18 [History] clopidogrel 1 tab PO DAILY 08/08/18 [History] doxycycline hyclate 1 tab PO BID 08/08/18 [History] hydralazine 1 tab PO TID 08/08/18 [History] levothyroxine 1 tab PO DAILY 08/08/18 [History] metformin 1 tab PO BID 08/08/18 [History] nicardipine 1 tab PO TID 08/08/18 [History] sitagliptin 1 tab PO DAILY 08/08/18 [History] alprazolam 1 mg PO BID PRN 08/10/18 [History] amlodipine 2.5 mg PO HS 08/10/18 [History] donepezil 10 mg PO QDAY 08/10/18 [History] esomeprazole magnesium [Nexium] 40 mg PO QDAY 08/10/18 [History] lisinopril 30 mg PO BID 08/10/18 [History] losartan 100 mg PO QDAY 08/10/18 [History] sitagliptin-metformin [Janumet] 1 tab PO BID 08/10/18 [History] tamsulosin 0.4 mg PO HS 08/10/18 [History] dextromethorphan-guaifenesin [Mucinex DM] 1 tab PO Q12H #20 tab 08/11/18 [Rx] ipratropium-albuterol 1 ea NEB TID #50 units 08/11/18 [Rx] levofloxacin [Levaquin] 750 mg PO DAILY #10 tab 08/11/18 [Rx] Prescriptions: dextromethorphan-guaifenesin [Mucinex DM] Lamine Mohan ipratropium-albuterol Lamine Mohan levofloxacin [Levaquin] Lamine Mohan - Discharge Disposition Discharge Disposition: PATIENT IS TO FOLLOW UP IN OUR OFFICE IN ONE WEEK.
== END 2018-08-11 14:30 | disposition home health service (06) | DRG 195 ==
LOC: ER 12:50 → ICU 16:26
PROVIDERS: ADMIT Internal Medicine; ATTEND Internal Medicine
DX: J18.8 Other pneumonia, unspecified organism; R06.03 Acute respiratory distress; R06.02 Shortness of breath; R09.02 Hypoxemia; R26.89 Other abnormalities of gait and mobility; M13.89 Other specified arthritis, multiple sites; R60.0 Localized edema; I51.7 Cardiomegaly
CPT/HCPCS: 36415; 36600; 51702; 71010; 71045; 80053; 81001; 82550; 82553; 82803; 83605; 83880; 84484; 85025; 85610; 85730; 87040; 87070; 87205; 93005; 94640; 94660; 96365; 96374; 96375; 97110; 97163; 97167; 97530; 99284; A4618; A7030; J0360; J0713; J1580; J1940; J1956; J2270; J7050; J7620